=== PATIENT | male | born 1970 | race Caucasian/White ===

== ENCOUNTER 2019-12-08 06:40 | Day surgery (SDC) | payer BC ==
[2019-12-01 16:11] LABS: BASOPHIL % 0.4 % (0-2); PLATELET COUNT 169 x10^3mcL (130-400); RED CELL DISTRIBUTION WIDTH 13.3 % (11.5-14.5)
[2019-12-01 16:54] LABS: ALBUMIN 3.8 g/dL (3.4-5.0); ALKALINE PHOSPHATASE 51 U/L (46-116); ALT/SGPT 30 U/L (16-63); AST/SGOT 17 U/L (15-37); BILIRUBIN TOTAL 1.06 mg/dL (0.20-1.00); CARBON DIOXIDE 31.2 mmol/L (21-32); CHLORIDE SERUM 105 mmol/L (98-107); GFR1 > 60 mL/min; GLUCOSE SERUM 91 mg/dL (74-106); POTASSIUM SERUM 3.7 mmol/L (3.5-5.1); SODIUM SERUM 141 mmol/L (136-145); T4(THYROXINE) 10.5 ug/dL (4.7-13.3); TOTAL PROTEIN, SERUM 6.8 g/dL (6.4-8.2)
[2019-12-01 18:13] LABS: T3 TOTAL 1.26 ng/mL
[2019-12-03 09:07] LABS: CALCIUM 9.2 mg/dL (8.7-10.2)
[2019-12-04 09:07] LABS: PTH INTACT 33 pg/mL (15-65)
[2019-12-05 13:05] LABS: CALCITONIN 3.9 pg/mL (0.0-8.4)
--- NOTE | 2019-12-07 10:45 | NUR ---
COPY OF EKG OBTAINED. COPY SENT TO DR AGUSTINA FLORES AND TO ANESTHESIOLOGIST FOR REVIEW.
[~2019-12-08] VITALS: Ht 175.3 cm; Wt 88.9 kg
[2019-12-08 06:54] VITALS: BP 119/79
[2019-12-08 15:05] VITALS: BP 130/95
== END 2019-12-08 14:15 | disposition home or self-care (01) ==
LOC: DS 06:40
PROVIDERS: Surgery
DX: C73 Malignant neoplasm of thyroid gland (principal); I10 Essential (primary) hypertension; E66.9 Obesity, unspecified; Z68.32 Body mass index [BMI] 32.0-32.9, adult
CPT/HCPCS: 82308; 88344; J0330; J0690; J2250; J2405; J2704; J2765; J3010; J3490; J7120